=== PATIENT | male | born 1970 | race Caucasian/White ===

== ENCOUNTER 2018-01-17 09:53 | Day surgery (SDC) | payer OTHER ==
[2018-01-14 14:01] VITALS: BMI 32.6
[~2018-01-17 09:53] MED LIST: ceFAZolin SODIUM 1 GM VIAL IVPB ONE
[2018-01-17] MEDS ORDERED: SUCCINYLCHOLINE CHLORIDE 200 MG/10 ML VIAL ONE (10:46)
[2018-01-17] MEDS ORDERED: MIDAZOLAM HCL 2 MG/2 ML SINGLE DOSE VIAL ONE (10:46)
[2018-01-17] MEDS ORDERED: PROPOFOL 20 ML ONE ×2 (10:46→12:59)
[2018-01-17] MEDS ORDERED: LIDOCAINE HCL/PF 2% SDV 5ML VIAL ONE (10:50)
[2018-01-17] MEDS ORDERED: ceFAZolin SODIUM 1 GM VIAL ONE (12:47)
[2018-01-17] MEDS ORDERED: ceFAZolin SODIUM 1 GM VIAL IVPB ONE (12:50)
[2018-01-17] MEDS ORDERED: IOHEXOL 300 MG/ML INFUS..BTL IV ONE ×2 (12:53)
[2018-01-17] MEDS ORDERED: DEXAMETHASONE SOD PHOSPHATE 4 MG/1 ML VIAL ONE (13:00)
[2018-01-17] MEDS ORDERED: FUROSEMIDE 40 MG/4 ML INJECTABLE VIAL ONE (13:10)
[2018-01-17] MEDS ORDERED: oxyCODONE HCL 5 MG TABLET PO PRN (13:22)
--- NOTE | 2018-01-17 13:25 | OP ---
Operative Note - Note: Operative Date: 01/17/18 Pre-Operative Diagnosis: obstructing LPU stone Operation: cysto/retrograde/ureteroscopy/stent Findings: obstructing stone and stricture Post-Operative Diagnosis: Same as Pre-op (plus left distal and mid ureteral stricture) Surgeon: Raleigh Corcoran Anesthesia: General Estimated Blood Loss (mls): 5 Drains & Tubes with Location: 7fr, 24cm stent Operative Report Dictated: Yes
[2018-01-17] MEDS ORDERED: ACETAMINOPHEN 325 MG TABLET (FP) PO PRN (13:32)
[2018-01-17] MEDS ORDERED: LACTATED RINGERS SOLUTION 1,000 ML IV SCH (13:45)
[2018-01-17] MEDS ORDERED: ELECTROLYTE-148 SOLN 1,000 ML IV SCH (14:30)
--- NOTE | 2018-01-17 14:40 | OP ---
DATE OF OPERATION: DATE OF DICTATION: 01/17/2018 PREOPERATIVE DIAGNOSIS: Obstructing stone, left mid ureter. POSTOPERATIVE DIAGNOSIS: Obstructing stone, left mid ureter and left distal and mid-ureteral stricture. PROCEDURE: Cystoscopy, retrograde pyelogram, left ureteroscopy, and stent placement. SURGEON: Raleigh Corcoran MD INDICATION: The patient is a 47-year-old male with history of a large stone in left mid ureter who underwent ESWL in the past and had passed some fragments but repeat imaging showed evidence of stone still present in the left mid ureter, and she was taken to the OR for an ureteroscopy. Risks, benefits, and alternatives were discussed. DESCRIPTION OF PROCEDURE: Patient taken to the OR, placed supine on the operative table. After cardiac monitoring was administered and general anesthesia established, she was prepped and draped in the dorsal lithotomy position. She was given 1 g of Ancef. The rigid cystoscope was inserted into the urethra without difficulty. The anterior urethra was normal cm and visually occlusive. The bladder was then visualized. No tubes or stones noted in the bladder. Attention was turned to the left ureteral orifice. This was intubated with ureteral catheter and contrast was injected for retrograde pyelogram. There was hydronephrosis to the level of the mid ureter. The ureter also appeared narrowed. A guidewire was advanced beyond the obstruction and into the left renal pelvis. Over guidewire, a rigid ureteroscope was advanced. There was a stricture at the distal ureter, and this was negotiated with the scope, and then in the mid ureter there was also stricture, and this could not be negotiated with scope, and so, it appeared that the stone was just beyond this area. So at this point, we switched over to flexible scope, and it was advanced beyond the stricture in the distal ureter, and then in the mid ureter, it would not advance any further. At this point, with the presence of a stricture, the decision was made at this point for me to just place a stent and to come back at a later date when the ureter was dilated to be able to advance the scope. So, over the remaining guidewire, a 7-Urdu 24-cm stent was then advanced in the monorail fashion. Fluoroscopy confirmed this to be in good position. Patient was then awoken from anesthesia and transferred to recover in stable condition. There were no complications. Estimated blood loss was minimal. Kateryna [id number]
[2018-01-17 14:57] VITALS: TEMP 98.2
[2018-01-17 15:51] VITALS: BP 132/82; PULSE 72
== END 2018-01-17 15:40 | disposition home or self-care (01) ==
LOC: JASU-SURG 09:53
PROVIDERS: ATTEND Urology
PROC: 0T778DZ Dilation of Left Ureter with Intraluminal Device, Via Natural or Artificial Opening Endoscopic (ICD-10-PCS; principal; 2018-01-17 11:30)
DX: N20.1 Calculus of ureter (principal)
CPT/HCPCS: 76000-TC-FY

== ENCOUNTER 2018-01-31 10:02 | Day surgery (SDC) | payer OTHER ==
[2018-01-30 17:20] VITALS: BMI 36.8
[2018-01-31] MEDS ORDERED: ONDANSETRON 4 MG/2 ML VIAL IVPUSH PRN (11:37)
[2018-01-31] MEDS ORDERED: PROMETHAZINE HCL 25 MG/1 ML VIAL IVPUSH PRN (11:37)
[2018-01-31] MEDS ORDERED: LACTATED RINGERS SOLUTION 1,000 ML IV SCH (11:45)
[2018-01-31] MEDS ORDERED: MIDAZOLAM HCL 2 MG/2 ML SINGLE DOSE VIAL ONE (11:47)
[2018-01-31] MEDS ORDERED: PROPOFOL 20 ML ONE ×2 (11:47)
[2018-01-31] MEDS ORDERED: ceFAZolin SODIUM 1 GM VIAL ONE (11:51)
[2018-01-31] MEDS ORDERED: GENTAMICIN SO4 80 MG/2 ML VIAL ONE (11:51)
[2018-01-31] MEDS ORDERED: ceFAZolin SODIUM 1 GM VIAL IVPB ONE (12:10)
[2018-01-31] MEDS ORDERED: GENTAMICIN SO4 80 MG/2 ML VIAL IVPB ONE (12:12)
[2018-01-31] MEDS ORDERED: DEXAMETHASONE SOD PHOSPHATE 4 MG/1 ML VIAL ONE (12:24)
[2018-01-31] MEDS ORDERED: FUROSEMIDE 40 MG/4 ML INJECTABLE VIAL ONE (12:29)
[2018-01-31] MEDS ORDERED: oxyCODONE HCL 5 MG TABLET PO PRN (13:01)
--- NOTE | 2018-01-31 13:03 | OP ---
Operative Note - Note: Operative Date: 01/31/18 Pre-Operative Diagnosis: left ureteral stone, left ureteral stricture, LLP stone Operation: cysto/URS/laser litho/stent Findings: as above Post-Operative Diagnosis: Same as Pre-op Surgeon: Raleigh Corcoran Anesthesia: General Estimated Blood Loss (mls): 10 Drains & Tubes with Location: 8fr 24cm stent Operative Report Dictated: Yes
[2018-01-31] MEDS ORDERED: ELECTROLYTE-148 SOLN 1,000 ML IV SCH (13:15)
--- NOTE | 2018-01-31 13:59 | OP ---
DATE OF OPERATION: DATE OF DICTATION: 01/31/2018 PREOPERATIVE DIAGNOSIS: Left ureteral stone, left kidney stone, and left ureteral stricture. POSTOPERATIVE DIAGNOSIS: Left ureteral stone, left kidney stone, and left ureteral stricture. PROCEDURE: Cystoscopy, stent removal, left ureteroscopy, laser lithotripsy or ureteral stone and left lower pole stone, stent replacement, and retrograde pyelogram. SURGEON: Tammy Harrington MD INDICATIONS: The patient is a 47-year-old male status post stent placement from obstruction left proximal ureteral stone and stricture approximately 2 weeks ago who was taken to the OR for laser lithotripsy. DESCRIPTION OF PROCEDURE: The patient was taken to the OR. After cardiac monitoring was administered, general anesthesia was administered. He was prepped and draped in the dorsal lithotomy position. The 22-sheath cystoscope was inserted without difficulty. was normal. The prostatic urethra was 3 cm. The bladder was visualized. No tumors or stone was noted in the bladder. Stent was seen emanating from the left ureteral orifice. Alongside the stent, the guidewire was advanced into the left renal pelvis and then the stent was removed and a 2 guidewire was advanced through the stent. Over one of the wires, the ureteroscope was advanced to the proximal ureter where a stone was seen in the ureter. There was evidence of stricture there, but the stent had dilated stricture, so the ureteroscope could be easily passed to the stone. Using the 365 micron laser fiber, the stone was pulverized to fine dust into 1- to 2-mm fragments under the entire stone burden was cleared. At this point, the rest of the ureter was inspected, and no other ureteral stone were noted but then inspection of the collecting system revealed another stone approximately 1 cm in size in the left lower pole. Then using the same laser fiber, this stone was pulverized to 2- to 3-mm fragments using the laser fiber until the entire stone was pulverized. No other stone were noted. The ureteroscope was then removed, and an 8-Eritrean 24-cm double pigtail stent was then advanced in monorail fashion. Fluoroscopy confirmed this to be in good position. The patient was awoken from anesthesia and transferred to recovery room in stable condition. There were no complications. Estimated blood loss was minimal. TAMMY HARRINGTON M.D. [id number]
[2018-01-31 14:19] VITALS: PULSE 62
[2018-01-31 15:36] VITALS: BP 126/75; TEMP 97.7
--- NOTE | 2018-02-01 17:36 | PATH ---
Surgical Pathology Report Patient Name: IVÁN MILLER Med. Rec. #: [id number] /Age/Gender: 1970 (Age: 47) / M Account: [id number] Location: [facility] Taken: 01/31/2018 Received: 01/31/2018 Reported: 02/01/2018 Physicians: Raleigh Corcoran M.D. Specimen(s) Received REMOVED STENT Clinical History Calculus of one bladder Final Diagnosis URETERAL STENT, LEFT, REMOVAL: URETERAL STENT. MACROSCOPIC DIAGNOSIS. Electronically Signed Flaca Ludwig M.D. Gross Description Received fresh labeled "removed stent," is a 35 cm in length blue-green, coiled portion of tubing, consistent with a ureteral stent. No soft tissue is present. No sections are submitted, gross only. /01/31/2018 [place]udi/01/31/2018
== END 2018-01-31 15:30 | disposition home or self-care (01) ==
LOC: JASU-SURG 10:02
PROVIDERS: ATTEND Urology
PROC: 0T778DZ Dilation of Left Ureter with Intraluminal Device, Via Natural or Artificial Opening Endoscopic (ICD-10-PCS; 2018-01-31)
PROC: 0TF78ZZ Fragmentation in Left Ureter, Via Natural or Artificial Opening Endoscopic (ICD-10-PCS; principal; 2018-01-31 11:00)
PROC: 0T778DZ Dilation of Left Ureter with Intraluminal Device, Via Natural or Artificial Opening Endoscopic (ICD-10-PCS; 2018-01-31 11:00)
PROC: 0TF78ZZ Fragmentation in Left Ureter, Via Natural or Artificial Opening Endoscopic (ICD-10-PCS; 2018-01-31 11:00)
DX: N20.0 Calculus of kidney (principal); N20.1 Calculus of ureter; N13.5 Crossing vessel and stricture of ureter without hydronephrosis
CPT/HCPCS: 76000-TC-FY; 88300-TC; 94760